=== PATIENT | male | born 1980 | race Caucasian/White ===

== ENCOUNTER 2022-12-10 18:54 | Emergency (ER) | payer SELFPAY ==
[2022-12-10 20:14] LABS: #Basophils 0.1 10x3/uL (0.0-0.2); #Eosinphils 0.3 10x3/uL (0.0-0.5); #Monocytes 1.3 10x3/uL (0.0-1.1); %Basophils 0.7 % (0.0-2.0); %Eosinophils 3.1 % (0.0-6.0); %Monocytes 13.7 % (0.0-10.0); %Neutrophils 64.6 % (40.0-75.0); Hematocrit 47.1 % (38.8-50.0); Mean Corpuscular HGB CONC 31.8 g/dL (32.0-36.0); Mean Corpuscular Hemoglobin 29.5 pg (27.0-33.0); Mean Corpuscular Volume 92.7 fl (81.2-95.1); Mean Platelet Volume 9.2 fl (7.4-10.4); Platelet Count 244 10x3/uL (150-450); RBC Distribution Width 12.6 % (11.5-14.5); Red Blood Cell (RBC) Count 5.08 10x6/uL (4.32-5.72); White Blood Cell (WBC) Count 9.2 10x3/uL (3.5-10.5)
[2022-12-10 20:24] LABS: Anion Gap 12 mmol/L (10-20); BUN (Urea Nitrogen) 16 mg/dL (8.9-20.6); Calc. Creatinine Clearance 0 mL/min (70-130); Calcium 9.9 mg/dL (7.8-10.44); Carbon Dioxide 31 mmol/L (22-29); Chloride 101 mmol/L (98-107); Estimated GFR 111; Glucose 156 mg/dL (70-105); Potassium 5.1 mmol/L (3.5-5.1); Sodium 139 mmol/L (136-145)
[2022-12-10] MEDS ORDERED: Furosemide 40 MG TAB ONE (21:41)
[2022-12-10] MEDS ORDERED: oxyCODONE 5 MG TAB ONE (21:43)
== END 2022-12-10 23:51 | disposition home or self-care (01) ==
LOC: CSHERS 18:54
DX: M79.605 Pain in left leg (principal); M79.89 Other specified soft tissue disorders; R79.1 Abnormal coagulation profile; E11.9 Type 2 diabetes mellitus without complications
CPT/HCPCS: 80048; 85025; 85379

== ENCOUNTER 2022-12-12 10:34 | Emergency (ER) | payer SELFPAY | END 2022-12-12 12:45 | disposition home or self-care (01) | LOC: CSHERS 10:34 | DX: R22.42 Localized swelling, mass and lump, left lower limb (principal); E11.9 Type 2 diabetes mellitus without complications; I10 Essential (primary) hypertension; E78.5 Hyperlipidemia, unspecified; F17.210 Nicotine dependence, cigarettes, uncomplicated | CPT/HCPCS: 99283 ==

== ENCOUNTER 2024-02-23 19:00 | Emergency (ER) | payer SELFPAY ==
[2024-02-23] MEDS ORDERED: Sulfameth/Trimethoprim DS 800-160mg TAB ONE (20:09)
[2024-02-23] MEDS ORDERED: Cephalexin 250 MG CAP ONE (20:09)
== END 2024-02-23 20:22 | disposition home or self-care (01) ==
LOC: CSHERS 19:00
DX: E11.621 Type 2 diabetes mellitus with foot ulcer (principal); L97.429 Non-pressure chronic ulcer of left heel and midfoot with unspecified severity; I10 Essential (primary) hypertension; F17.210 Nicotine dependence, cigarettes, uncomplicated
CPT/HCPCS: 99283